=== PATIENT | female | born 1980 | race Caucasian/White ===

== ENCOUNTER 2020-03-21 23:27 | Emergency (ER) | payer BC ==
[~2020-03-21] VITALS: Ht 165.1 cm; Wt 136.0 kg
[2020-03-21 23:55] VITALS: BP 169/110
--- NOTE | 2020-03-22 00:25 | PHYS DOC ---
General Adult EDM: Chief Complaint: DENTAL PROBLEM HPI: HPI: Patient is a 39 year old female who presented to ER for evaluation of right- sided lower dental pain and swelling for 3 days. The swelling become more severe today so she came in for evaluation. Patient denies any fever, no neck pain, no headache. Review of Systems: Review of Systems: Constitutional: Denies fever or chills. [] Eyes: Denies change in visual acuity. [] HENT: Denies nasal congestion or sore throat. Positive for right lower dental pain and swelling. Respiratory: Denies cough or shortness of breath. [] Cardiovascular: Denies chest pain or edema. [] GI: Denies abdominal pain, nausea, vomiting, bloody stools or diarrhea. [] : Denies dysuria. [] Musculoskeletal: Denies back pain or joint pain. [] Integument: Denies rash. [] Neurologic: Denies headache, focal weakness or sensory changes. [] Endocrine: Denies polyuria or polydipsia. [] Lymphatic: Denies swollen glands. [] Psychiatric: Denies depression or anxiety. [] Heart Score: Risk Factors: Risk Factors: DM, Current or recent (<one month) smoker, HTN, HLP, family history of CAD, obesity. Risk Scores: Score 0 - 3: 2.5% MACE over next 6 weeks - Discharge Home Score 4 - 6: 20.3% MACE over next 6 weeks - Admit for Clinical Observation Score 7 - 10: 72.7% MACE over next 6 weeks - Early Invasive Strategies Physical Exam: PE: Constitutional: Well developed, well nourished, no acute distress, non-toxic appearance. [] HENT: Normocephalic, atraumatic, bilateral external ears normal, oropharynx moist, no oral exudates, nose normal. There is a palpable abscess at the gumline of right lower 2nd molar. DENTAL DECAY ON RIGHT LOWER TEETH AREA. NO TRISMUS. Eyes: PERRLA, EOMI, conjunctiva normal, no discharge. [] Neck: Normal range of motion, no tenderness, supple, no stridor. [] Cardiovascular:Heart rate regular rhythm, no murmur [] Lungs & Thorax: Bilateral breath sounds clear to auscultation [] Abdomen: Bowel sounds normal, soft, no tenderness, no masses, no pulsatile masses. [] Skin: Warm, dry, no erythema, no rash. [] Back: No tenderness, no CVA tenderness. [] Extremities: No tenderness, no cyanosis, no clubbing, ROM intact, no edema. [] Neurologic: Alert and oriented X 3, normal motor function, normal sensory function, no focal deficits noted. [] Psychologic: Affect normal, judgement normal, mood normal. [] EKG: EKG: [] Radiology/Procedures: Radiology/Procedures: Dental abscess was aspirated with 18 gauge needle, small amount of yellow pus was aspirated after the area was anesthesized with viscous lidocaine. Patient tolerated procedure well. Course & Med Decision Making: Course & Med Decision Making Pertinent Labs and Imaging studies reviewed. (See chart for details) [] Dragon Disclaimer: Dragon Disclaimer: This electronic medical record was generated, in whole or in part, using a voice recognition dictation system. Departure Departure Impression: Primary Impression: Dental abscess Disposition: 01 DC HOME SELF CARE/HOMELESS Condition: IMPROVED Referrals: NO PCP (PCP) please follow up with your dentist next week Patient Instructions: Dental Abscess Scripts Ibuprofen (IBUPROFEN) 800 Mg Tablet 800 MG PO PRN Q6HRS PRN for PAIN, #30 TAB Prov: JAYNE CÁRDENAS DO 03/22/20 Amoxicillin (AMOXICILLIN) 500 Mg Tablet 1 TAB PO TID, #30 TAB Prov: JAYNE CÁRDENAS DO 03/22/20 JAYNE CÁRDENAS DO Mar 22, 2020 00:25
[2020-03-22] MEDS ORDERED: LIDOCAINE 2% VISCOUS 15 ML SOLUTION. SWSW ONE (01:30)
[2020-03-22] MEDS ORDERED: IBUPROFEN 400 MG TABLET. PO ONE (01:30)
[2020-03-22] MEDS ORDERED: AMOXICILLIN 250 MG CAPSULE. PO ONE (01:30)
[2020-03-22] MEDS ORDERED: IBUP-1060 PO (01:36)
[2020-03-22] MEDS ORDERED: AMOX500T PO (01:36)
== END 2020-03-22 01:55 | disposition home or self-care (01) ==
LOC: ER 23:27
DX: K04.7 Periapical abscess without sinus (principal)
CPT/HCPCS: 41800; 99284